=== PATIENT | male | born 1950 | race Caucasian/White ===

== ENCOUNTER → 2016-09-27 | Outpatient (CLI) | payer MEDICARE, OTHER ==
[2016-05-07 07:00] VITALS: BP 122/68
[~2016-09-27] MED LIST: ACET325T9 PO; CEFP200T PO; DOCU-27 PO; FENT1PAT17 TD; FLUD0.1T PO; HYDR2TAB13 PO; HYDR4TAB13 PO; LIPA1CAP11 PO; LIPA1CAP8 PO; METR500T PO; MIDO5TAB PO; MULT1TAB52 PO; ONDA4TAB7 PO; OXYC-323 PO; OXYC15TA22 PO; OXYC5TAB PO; PANCREAZE DR 41 EACH PO; PANT40TA5 PO; TPN
== END | disposition home or self-care (01) ==
LOC: LAB 11:38
PROVIDERS: ATTEND Family Medicine
DX: K86.1 Other chronic pancreatitis (principal)
CPT/HCPCS: 36415; 83690

== ENCOUNTER → 2016-11-09 | Outpatient (CLI) | payer MEDICARE, OTHER ==
[2016-05-07 07:00] VITALS: BP 122/68
[2016-11-09 11:53] LABS: BASO # 0.1 x10^3/uL (0.0-0.2); BASO % 1 % (0-3); EOS % 2 % (0-3); HEMATOCRIT 37.9 % (39.0-53.0); HEMOGLOBIN 12.4 g/dL (13.0-17.5); LYMPH % 26 % (24-48); MEAN CORPUSCULAR HEMOGLOBIN 27 pg (25-35); MEAN CORPUSCULAR HGB CONC 33 g/dL (31-37); MEAN CORPUSCULAR VOLUME 81 fL (79-100); MONO % 9 % (0-9); NEUT % 62 % (31-73); PLATELET COUNT 230 x10^3/uL (140-400); RED BLOOD COUNT 4.68 x10^6/uL (4.30-5.70); RED CELL DISTRIBUTION WIDTH 17.1 % (11.5-14.5); WHITE BLOOD COUNT 7.5 x10^3/uL (4.0-11.0)
[2016-11-09 12:14] LABS: ALBUMIN 3.9 g/dL (3.4-5.0); ALBUMIN/GLOBULIN RATIO 0.9 (1.0-1.7); CALCIUM 9.6 mg/dL (8.5-10.1); CREATININE 1.5 mg/dL (0.7-1.3); POTASSIUM 4.3 mmol/L (3.5-5.1); TOTAL BILIRUBIN 0.4 mg/dL (0.2-1.0); TOTAL PROTEIN 8.3 g/dL (6.4-8.2)
== END | disposition home or self-care (01) ==
LOC: LAB 11:14
PROVIDERS: ATTEND Internal Medicine Hematology & Oncology
DX: C17.0 Malignant neoplasm of duodenum (principal)
CPT/HCPCS: 80053; 85027

== ENCOUNTER → 2017-01-19 | Outpatient (CLI) | payer MEDICARE ==
[2016-05-07 07:00] VITALS: BP 122/68
--- NOTE | 2017-01-19 13:13 | CARD ---
APPROVED REPORT EXAM: Two-dimensional and M-mode echocardiogram with Doppler and color Doppler. Other Information Quality : Average Rhythm : NSR INDICATION Chest Pain Sick sinus syndrome 2D DIMENSIONS RVDd3.8 (2.9-3.5cm)Left Atrium(2D)3.0 (1.6-4.0cm) IVSd0.8 (0.7-1.1cm)Aortic Root(2D)3.0 (2.0-3.7cm) LVDd4.5 (3.9-5.9cm)LVOT Diameter2.0 (1.8-2.4cm) PWd0.8 (0.7-1.1cm)LVDs3.1 (2.5-4.0cm) FS (%) 30.9 %SV55.3 ml LVEF(%)58.6 (>50%) Aortic Valve AoV Peak Charlie.102.7cm/sAoV VTI21.1cm AO Peak GR.4.2mmHgLVOT Peak Charlie.97.3cm/s LVOT VTI 21.28cmAO Mean GR.2mmHg DIMAS (VMAX)2.28lk5YGT (VTI)3.07cm2 Mitral Valve MV E Ywqzgzct07.9cm/sMV DECEL YNHD914ni MV A Tefketui08.0cm/sMV E Mean Gr.1mmHg MV UGX14psN/A Ratio0.8 MV A Uxyxizjv266egCMY (PHT)2.63cm2 TDI E/Lateral E'18.7E/Medial E'9.5 Pulmonary Valve PV Peak Tpqxsbkw91.8cm/sPV Peak Grad.4mmHg RVOT VTI14.8cm Tricuspid Valve TR P. Qlkhylny236zv/sRAP LZJOINWN2xdJp TR Peak Gr.27waVzUFKG00gpZt LEFT VENTRICLE The left ventricle is normal size. There is normal left ventricular wall thickness. Left ventricle sy stolic function is normal. The Ejection Fraction is 55-60%. There is normal LV segmental wall motion. Tissue Doppler imaging reveals mild left ventricular diastolic dysfunction. Transmitral Doppler flow pattern is Grade I-abnormal relaxation pattern. There is no ventricular septal defect visualized. RIGHT VENTRICLE The right ventricle is normal size. The right ventricular systolic function is normal. There is a pac emaker lead seen in the RV/RA. ATRIA The left atrium size is normal. The right atrium size is normal. The interatrial septum is intact wit h no evidence for an atrial septal defect or patent foramen ovale as noted on 2-D or Doppler imaging. AORTIC VALVE The aortic valve is normal in structure and function. The aortic valve is trileaflet. Doppler and Col or Flow revealed no significant aortic regurgitation. There is no significant aortic valvular stenosi s. MITRAL VALVE The mitral valve is normal in structure and function. There is no mitral valve stenosis. Doppler and Color Flow revealed no mitral valve regurgitation noted. TRICUSPID VALVE The tricuspid valve is normal in structure and function. Doppler and Color Flow revealed mild tricusp id regurgitation. The PA pressure was estimated at 30 mmHg. There is no tricuspid valve stenosis. PULMONIC VALVE The pulmonic valve is not well visualized. Doppler and Color Flow revealed no pulmonic valvular regur gitation. There is no pulmonic valvular stenosis. GREAT VESSELS The aortic root is normal in size. The IVC is normal in size and collapses >50% with inspiration. PERICARDIAL EFFUSION There is no evidence of significant pericardial effusion. Critical Notification Critical Value: No <Conclusion> Left ventricle systolic function is normal. The Ejection Fraction is 55-60%. There is normal LV segmental wall motion. Transmitral Doppler flow pattern is Grade I-abnormal relaxation pattern. Doppler and Color Flow revealed mild tricuspid regurgitation. The PA pressure was estimated at 30 mmHg. There is no evidence of significant pericardial effusion.
== END | disposition home or self-care (01) ==
LOC: ECHO 10:51
PROVIDERS: ATTEND Internal Medicine Cardiovascular Disease
DX: I07.1 Rheumatic tricuspid insufficiency (principal)
CPT/HCPCS: 93306

== ENCOUNTER → 2017-05-30 | Outpatient (CLI) | payer MEDICARE ==
[2016-05-07 07:00] VITALS: BP 122/68
[~2017-05-30] MED LIST changes: +DOCU-109 PO; -DOCU-27 PO; -HYDR2TAB13 PO; +HYDR2TAB31 PO; -HYDR4TAB13 PO; +HYDR4TAB45 PO; -OXYC5TAB PO; +OXYC5TAB95 PO
[2017-05-30 13:57] LABS: BASO # 0.1 x10^3/uL (0.0-0.2); BASO % 1 % (0-3); EOS % 1 % (0-3); HEMATOCRIT 36.5 % (39.0-53.0); HEMOGLOBIN 12.1 g/dL (13.0-17.5); LYMPH # 1.5 x10^3/uL (1.0-4.8); LYMPH % 14 % (24-48); MEAN CORPUSCULAR HEMOGLOBIN 28 pg (25-35); MEAN CORPUSCULAR HGB CONC 33 g/dL (31-37); MEAN CORPUSCULAR VOLUME 84 fL (79-100); MONO % 8 % (0-9); NEUT % 76 % (31-73); PLATELET COUNT 252 x10^3/uL (140-400); RED BLOOD COUNT 4.35 x10^6/uL (4.30-5.70); RED CELL DISTRIBUTION WIDTH 13.3 % (11.5-14.5); WHITE BLOOD COUNT 10.7 x10^3/uL (4.0-11.0)
[2017-05-30 14:58] LABS: ALBUMIN 3.4 g/dL (3.4-5.0); ALBUMIN/GLOBULIN RATIO 0.8 (1.0-1.7); CALCIUM 9.1 mg/dL (8.5-10.1); CREATININE 1.5 mg/dL (0.7-1.3); POTASSIUM 4.8 mmol/L (3.5-5.1); TOTAL BILIRUBIN 0.3 mg/dL (0.2-1.0); TOTAL PROTEIN 7.7 g/dL (6.4-8.2)
== END | disposition home or self-care (01) ==
LOC: LAB 13:25
PROVIDERS: ATTEND Internal Medicine Hematology & Oncology
DX: C17.0 Malignant neoplasm of duodenum (principal)
CPT/HCPCS: 36415; 80053; 82378; 85025

== ENCOUNTER → 2017-09-18 | Outpatient (CLI) | payer MEDICARE ==
[~2017-09-18] MED LIST changes: -ACET325T9 PO; -CEFP200T PO; +CONTRAST GIVEN MC; -DOCU-109 PO; -FENT1PAT17 TD; -FLUD0.1T PO; -HYDR2TAB31 PO; -HYDR4TAB45 PO; -LIPA1CAP11 PO; -LIPA1CAP8 PO; -METR500T PO; -MIDO5TAB PO; -MULT1TAB52 PO; -ONDA4TAB7 PO; -OXYC-323 PO; -OXYC15TA22 PO; -OXYC5TAB95 PO; -PANCREAZE DR 41 EACH PO; -PANT40TA5 PO; -TPN
[2017-09-18] MEDS: IOHEXOL 300 MG/ML 100ML VIAL. IV (11:36)
== END | disposition home or self-care (01) ==
LOC: CT 10:32
DX: C17.0 Malignant neoplasm of duodenum (principal); K76.89 Other specified diseases of liver; K86.89 Other specified diseases of pancreas; M41.85 Other forms of scoliosis, thoracolumbar region; F17.200 Nicotine dependence, unspecified, uncomplicated; Z95.0 Presence of cardiac pacemaker; Z90.49 Acquired absence of other specified parts of digestive tract; Z90.411 Acquired partial absence of pancreas
CPT/HCPCS: 74177; Q9967

== ENCOUNTER → 2019-01-11 | Outpatient (CLI) | payer MEDICARE ==
[2017-06-06 11:00] VITALS: BP 94/53
[~2019-01-11] MED LIST changes: +ACET325T9 PO; +CEFP200T PO; -CONTRAST GIVEN MC; +DOCU-109 PO; +FENT1PAT17 TD; +FLUD0.1T PO; +HYDR2TAB31 PO; +HYDR4TAB45 PO; +INSU100V13 SQ; +IOHEXOL 240 MG/ML 50ML VIAL. PO ONE; +LIPA1CAP11 PO; +LIPA1CAP8 PO; +METR500T PO; +MIDO5TAB PO; +MULT1TAB52 PO; +ONDA4TAB7 PO; +OXYC15TA22 PO; +OXYC1TAB15 PO; +OXYC5TAB4 PO; +PANCREAZE DR 41 EACH PO; +PANT40TA5 PO; +TPN
--- NOTE | 2019-01-11 12:57 | RAD ---
CT of the chest, abdomen and pelvis without contrast, 01/11/2019: History: Duodenal cancer follow-up No IV contrast was administered as requested. Oral contrast material was administered for GI tract opacification. A left-sided transvenous pacing device is in place with 2 leads extending into the right heart. The heart is not enlarged. There is moderate calcific plaquing of the thoracic aorta without evidence of any present. Several coronary artery calcifications are noted. No mediastinal adenopathy is evident. There are a few scattered linear parenchymal opacities in the lungs. A tiny 3 mm opacity is seen posterolaterally in the superior segment of the right lower lobe on image 26 of series #2. A tiny 2 mm nodule is present laterally in the left upper lobe on image 25 of series #2. A small density seen laterally in the lingula on image 46 of series #2 demonstrates an elongated configuration in the coronal plane and is probably a scar. No pulmonary mass or dense consolidation is seen. There is no evidence of pleural fluid. Pneumobilia is present. There is a low-density lesion in the superolateral aspect of the right lobe of the liver. Comparison of today's noncontrast scan to the previous postcontrast scan is difficult due to technical differences. This lesion appears to be of similar size. No new hepatic abnormality is identified on today's noncontrast study. 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 A density in the normal region of the second portion of the duodenum probably represents unopacified bowel. A similar appearance was present on 06/03/2017. Residual recurrent tumor in this region cannot be excluded. The remaining portions of the pancreas appear unchanged. The spleen is of normal size. There is bilateral renal cortical scarring. The kidneys show no evidence of obstruction. No adrenal abnormality is seen. An inferior vena cava filter is in place in an infrarenal location. Aortoiliac calcific plaquing is present. No abdominal or pelvic adenopathy is evident. The prostate gland is mildly enlarged. The bowel loops are not distended. No free fluid is evident in the abdomen or pelvis. There is a moderate thoracolumbar scoliosis with moderate scattered degenerative changes. IMPRESSION: 1. Stable CT abdomen and pelvis findings. 2. Mild parenchymal scarring in the lungs. 3. Several tiny subcentimeter pulmonary nodules are noted as described above, and are nonspecific. CT follow-up is suggested, if clinically indicated. PQRS Compliance Statement: One or more of the following individualized dose reduction techniques were utilized for this examination: 1. Automated exposure control 2. Adjustment of the mA and/or kV according to patient size 3. Use of iterative reconstruction technique
== END | disposition home or self-care (01) ==
LOC: CT 09:10
PROVIDERS: ATTEND Internal Medicine Hematology & Oncology
DX: C17.0 Malignant neoplasm of duodenum (principal); J98.4 Other disorders of lung; R91.8 Other nonspecific abnormal finding of lung field; I25.10 Atherosclerotic heart disease of native coronary artery without angina pectoris; N28.89 Other specified disorders of kidney and ureter; M41.85 Other forms of scoliosis, thoracolumbar region
CPT/HCPCS: 71250; 74176; Q9966

== ENCOUNTER → 2019-01-24 | Outpatient (CLI) | payer MEDICARE ==
[2017-06-06 11:00] VITALS: BP 94/53
[~2019-01-24] MED LIST changes: -IOHEXOL 240 MG/ML 50ML VIAL. PO ONE
--- NOTE | 2019-01-24 11:44 | CARD ---
MR#: [id number] Date of Study: 01/24/2019 Ordering Physician: SYLVIA PAGE, Referring Physician: SYLVIA PAGE Tech: Patience Peralta RDCS APPROVED REPORT EXAM: Two-dimensional and M-mode echocardiogram with Doppler and color Doppler. Other Information Quality : Excellent INDICATION Sick Sinus Syndrome Surgery/Intervention Pacemaker: Date: 2012 2D DIMENSIONS RVDd3.0 (2.9-3.5cm)Left Atrium(2D)3.6 (1.6-4.0cm) IVSd1.0 (0.7-1.1cm)Aortic Root(2D)2.9 (2.0-3.7cm) LVDd4.4 (3.9-5.9cm)LVOT Diameter2.2 (1.8-2.4cm) PWd1.0 (0.7-1.1cm)LVDs3.0 (2.5-4.0cm) FS (%) 27.0 %SV20.6 ml LVEF(%)55.0 (>50%) Aortic Valve AoV Peak Charlie.137.8cm/sAoV VTI27.2cm AO Peak GR.7.6mmHgLVOT Peak Charlie.115.1cm/s AO Mean GR.4mmHgAVA (VMAX)3.14cm2 DIMAS (VTI)3.40cm2 Mitral Valve MV E Iayjaxzk89.0cm/sMV DECEL YWKM906gf MV A Cmmwxyja67.7cm/sE/A Ratio0.8 Tricuspid Valve TR P. Llezxmld816wa/sRAP NHPWTKAU8hrPw TR Peak Gr.96weYzQYYP15unZh Pulmonary Vein S1 Crclittn62.5cm/sD2 Gnpxykia25.9cm/s LEFT VENTRICLE The left ventricle is normal size. There is normal left ventricular wall thickness. Left ventricle sy stolic function is normal The Ejection Fraction is 55-60%. Apical motion consistent with pacemaker ac tivation. Transmitral Doppler flow pattern is Grade I-abnormal relaxation pattern. RIGHT VENTRICLE The right ventricle is normal size. The right ventricular systolic function is normal. There is a pac emaker lead in the right ventricle. ATRIA The left atrium size is normal. The right atrium size is normal. A pacemaker is seen in the right atr ium consistent with history. The interatrial septum is intact with no evidence for an atrial septal d efect or patent foramen ovale as noted on 2-D or Doppler imaging. AORTIC VALVE The aortic valve is calcified but opens well. Doppler and Color Flow revealed no significant aortic r egurgitation. There is no significant aortic valvular stenosis. MITRAL VALVE The mitral valve is calcified but opens well. A borderline mitral valve prolapse is present. There is no mitral valve stenosis. Doppler and Color Flow revealed no mitral valve regurgitation noted. TRICUSPID VALVE The tricuspid valve is normal in structure and function. Doppler and Color Flow revealed trace tricus pid regurgitation. The PA pressure was estimated at 30 mmHg. There is no tricuspid valve stenosis. PULMONIC VALVE The pulmonary valve is normal in structure and function. Doppler and Color Flow revealed trace pulmon ic valvular regurgitation. There is no pulmonic valvular stenosis. GREAT VESSELS The aortic root is normal in size. The ascending aorta is normal in size. The IVC is normal in size a nd collapses >50% with inspiration. PERICARDIAL EFFUSION There is no evidence of significant pericardial effusion. Critical Notification Critical Value: No <Conclusion> Left ventricle systolic function is normal The Ejection Fraction is 55-60%. Transmitral Doppler flow pattern is Grade I-abnormal relaxation pattern. There is a pacemaker lead in the right atrium and right ventricle. Trace tricuspid regurgitation. The PA pressure was estimated at 30 mmHg. There is no evidence of significant pericardial effusion. Signed by : Sylvia Page, Electronically Approved : 01/24/2019 11:43:52
== END | disposition home or self-care (01) ==
LOC: ECHO 10:53
PROVIDERS: ATTEND Internal Medicine Cardiovascular Disease
DX: I08.0 Rheumatic disorders of both mitral and aortic valves (principal); I49.5 Sick sinus syndrome; Z95.0 Presence of cardiac pacemaker
CPT/HCPCS: 93306

== ENCOUNTER → 2019-08-13 | Outpatient (CLI) | payer MEDICARE ==
[2019-08-10 18:47] VITALS: BP 158/95
[~2019-08-13] MED LIST changes: +CONTRAST GIVEN. MC PRN; +IOHEXOL 240 MG/ML 50ML VIAL. PO ONE; -MIDO5TAB PO; +MIDO5TAB4 PO; -PANT40TA5 PO; +PANT40TA77 PO
--- NOTE | 2019-08-13 15:40 | RAD ---
PQRS Compliance statement: One or more of the following individualized dose reduction techniques were utilized for this examination: 1. Automated exposure control. 2. Adjustment of the mA and/or kV according to patient size. 3. Use of iterative reconstruction technique. Indication: Right lower quadrant pain. TECHNIQUE: CT abdomen and pelvis without IV contrast with multiplanar reformats. COMPARISON: 01/11/2019 FINDINGS: Limited evaluation of solid abdominal and pelvic organs due to lack of IV contrast. Heart is normal in size. No pericardial or pleural effusion. Clear lung bases. Stable low attenuating lesion in the right hepatic dome measuring 2.4 x 2.5 cm (series 2 image 13) also seen on previous CT from 2013. Stable pneumobilia. Spleen is unenlarged. Status post cholecystectomy. Noncontrast appearance of the pancreas is within normal limits. Suggestion of hepaticoduodenostomy. Infrarenal IVC filter noted. No nephrolithiasis or hydronephrosis. No enlarged retroperitoneal or pelvic adenopathy. Moderate atherosclerotic plaque in the abdominal aorta and bilateral iliac arteries. No free pelvic fluid or ascites. The prostate and seminal vesicles show no large mass. No bowel obstruction. Urinary bladder demonstrates no radiopaque stone. No pneumoperitoneum. Significant levoscoliosis of the thoracolumbar junction. No suspicious bony lesion. Normal appendix. IMPRESSION: Limited evaluation of solid abdominal and pelvic organs due to lack of IV contrast. No acute process identified in the right lower quadrant. No nephrolithiasis. Stable right hepatic dome lesion dating back to 2012 and most likely benign given interval stability such as hemangioma or complex cyst. Electronically signed by: Jim Angelo DO (08/13/2019 3:37 PM) [facility]
== END | disposition home or self-care (01) ==
LOC: CT 10:12
PROVIDERS: ATTEND Family Medicine
DX: K76.89 Other specified diseases of liver (principal); Z90.49 Acquired absence of other specified parts of digestive tract; I70.0 Atherosclerosis of aorta
CPT/HCPCS: 74176; Q9966

== ENCOUNTER → 2020-01-23 | Outpatient (CLI) | payer MEDICARE ==
[2019-08-10 18:47] VITALS: BP 158/95
[~2020-01-23] MED LIST changes: -CONTRAST GIVEN. MC PRN; -IOHEXOL 240 MG/ML 50ML VIAL. PO ONE
--- NOTE | 2020-01-23 12:54 | CARD ---
MR#: [id number] Date of Study: 01/23/2020 Ordering Physician: SYLVIA POWERS, Referring Physician: SYLVIA POWERS, Tech: Oliva Field APPROVED REPORT EXAM: Two-dimensional and M-mode echocardiogram with Doppler and color Doppler. Other Information Quality : AverageHR: 65bpm INDICATION Arrhythmia Sick Sinus Syndrome 2D DIMENSIONS RVDd0.9 (2.9-3.5cm)Left Atrium(2D)3.5 (1.6-4.0cm) IVSd5.2 (0.7-1.1cm)Aortic Root(2D)2.9 (2.0-3.7cm) LVDd0.9 (3.9-5.9cm)LVOT Diameter2.0 (1.8-2.4cm) LVDs2.8 (2.5-4.0cm)FS (%) 214.1 % SV27.1 mlLVEF(%)1868.7 (>50%) Aortic Valve AoV Peak Charlie.130.1cm/sAoV VTI27.0cm AO Peak GR.6.8mmHgLVOT Peak Charlie.110.6cm/s LVOT VTI 22.45cmAO Mean GR.4mmHg DIMAS (VMAX)2.07an0CKU (VTI)2.71cm2 Mitral Valve MV E Dwngkqvr81.8cm/sMV DECEL VYSY239oq MV A Tfxtotpc48.3cm/sMV AGI89ol E/A Ratio0.8MVA (PHT)2.73cm2 TDI E/Lateral E'4.7E/Medial E'7.4 Pulmonary Valve PV Peak Mrpwluhp556.2cm/sPV Peak Grad.5mmHg Tricuspid Valve TR P. Duyqlugi769dj/sRAP FZTHTNIT7uqTa TR Peak Gr.98ihXiMODB52xfRe Pulmonary Vein S1 Hzovbbvi35.1cm/sD2 Ocfkzzji71.1cm/s LEFT VENTRICLE The left ventricle is normal size. There is normal left ventricular wall thickness. The left ventricu lar systolic function is normal. The Ejection Fraction is 55-60%. There is normal LV segmental wall m otion. Transmitral Doppler flow pattern is Grade I-abnormal relaxation pattern. RIGHT VENTRICLE The right ventricle is normal size. There is normal right ventricular wall thickness. The right ventr icular systolic function is normal. ATRIA The left atrium size is normal. The right atrium size is normal. The interatrial septum is intact wit h no evidence for an atrial septal defect or patent foramen ovale as noted on 2-D or Doppler imaging. AORTIC VALVE The aortic valve is normal in structure and function. Doppler and Color Flow revealed trace aortic re gurgitation. There is no significant aortic valvular stenosis. MITRAL VALVE The mitral valve is normal in structure and function. There is no evidence of mitral valve prolapse. There is no mitral valve stenosis. Doppler and Color-flow revealed trace mitral regurgitation. TRICUSPID VALVE The tricuspid valve is normal in structure and function. Doppler and Color Flow revealed trace tricus pid regurgitation with an estimated PAP of 28 mmHg. There is no tricuspid valve stenosis. PULMONIC VALVE The pulmonic valve is not well visualized. Doppler and Color Flow revealed no pulmonic valvular regur gitation. GREAT VESSELS The aortic root is normal in size. The IVC is normal in size and collapses >50% with inspiration. PERICARDIAL EFFUSION There is no evidence of significant pericardial effusion. Critical Notification Critical Value: No <Conclusion> The left ventricular systolic function is normal. The Ejection Fraction is 55-60%. There is normal LV segmental wall motion. Transmitral Doppler flow pattern is Grade I-abnormal relaxation pattern. Trace mitral regurgitation. Trace tricuspid regurgitation with an estimated PAP of 28 mmHg. There is no evidence of significant pericardial effusion. Signed by : Sylvia Powers, Electronically Approved : 01/23/2020 12:53:49
== END | disposition home or self-care (01) ==
LOC: ECHO 10:58
PROVIDERS: ATTEND Internal Medicine Cardiovascular Disease
DX: I49.5 Sick sinus syndrome (principal)
CPT/HCPCS: 93306

== ENCOUNTER → 2020-07-14 | Outpatient (CLI) | payer MEDICARE ==
[2019-08-10 18:47] VITALS: BP 158/95
[~2020-07-14] MED LIST changes: +MULT-445 PO; -MULT1TAB52 PO; +REGADENOSON 0.4 MG/5 ML DISP.SYRIN. IV ONE
--- NOTE | 2020-07-14 17:27 | RAD ---
MR#: [id number] Date of Study: 07/14/2020 Ordering Physician: SYLVIA PAGE Referring Physician: REZA SCHWARTZ Tech: RT Angela Horton) (N) APPROVED REPORT Test Type: Pharmacological Stress Nurse/Tech: Christianne Sandra RN Test Indications: Sick sinus syndrome Cardiac History: Diabetes,pacemaker Medications: See Electronic Medical Record Medical History: See Electronic Medical Record Resting ECG: Paced Rhythm Resting Heart Rate: 81 bpm Resting Blood Pressure: 121/54mmHg Pretest Chest Pain: No chest pain Nurse/Tech Notes S1,S2 and lungs clear to auscultation. Consent: The procedure was explained to the patient in lay terms. Informed consent was witnessed. Eulalio eout was entered into [employer]. History and Stress Test performed by RT Angela Horton) (N) Pharm. Details Pharmacologic stress testing was performed using 0.4mg per 5ml of regadenoson given intravenously ove r 7-10 seconds. Stress Symptoms No chest pain or symptoms. POST EXERCISE Reason for Termination: Infusion complete Target HR: No Max HR: 110 bpm 85% of Maximum Predicted HR: 129 bpm Max Blood Pressure: 119/66mmHg Blood Pressure response to exercise: Normal blood pressure response during stress. Heart Rate response to exercise: WNL Chest Pain: No. Arrhythmia: No. ST Change: No. INTERPRETATION Stress EKG Conclusion: The resting EKG shows a atrial paced rhythm. The stress EKG shows no significant changes from baseline. No EKG evidence of stress-induced ischemia. Imaging Protocol IMAGE PROTOCOL: Rest Tc-99m/stress Tc-99m 1 day Rest: Stress: Viability: Radiopharm.Tc99m JiuadoxvcCb95u Sestamibi Dose10.7mCi 32.6mCi Duration 13min. 13min. Img Date 07/14/2020 07/14/2020 Inj-Img Vxsf36sht. 60min. Rest Admin Site:IV - Left AntecubitalAdministrator:RT Sol (Gin)(N) Stress Admin Site: IV - Left AntecubitalAdministrator: Elma Meza, RT (R)(N) STRESS DATA End Diast. Vol.69.0mlLVEDV index BSA34.0ml End Syst. Vol.32.0mlLVESV index BSA16.0ml Myocardial Fugx889.0gEject. Jecljxac14.0% Stress Scores Regional WT0.00Summed WT2.00 Regional WM0.00Summed WM16.00 LV Perfusion The stress scans showed no significant defects. The rest scans showed no significant defects. Nuclear imaging shows no reversible ischemia or infarct. Wall Motion Left ventricular systolic function is low normal with an ejection fraction of 52%. LV Perf. Quant 17 Seg. SSS0.00 17 Seg. SRS3.00 17 Seg. SDS0.00 Stress Defect Extent (% LAD)0.00Rest Defect Extent (% LAD)0.00Rev. Defect Extent (% LAD)0.00 Stress Defect Extent (% LCX) 0.00Rest Defect Extent (% LCX)25.00Rev. Defect Extent (% LCX)0.00 Stress Defect Extent (% RCA)0.00Rest Defect Extent (% RCA)0.00Rev. Defect Extent (% RCA)0.00 Stress Defect Extent (% DEMI)0.00Rest Defect Extent (% DEMI)4.80Rev. Defect Extent (% DEMI)0.00 Conclusion 1. No EKG evidence of stress-induced ischemia. 2. Nuclear imaging shows no reversible ischemia or infarct. 3. LV systolic function is low normal with an ejection fraction of 52% in a patient with a pacemaker. 4. Moderately low risk Lexiscan nuclear stress test. Signed by : Jose Berry MD Electronically Approved : 07/14/2020 17:26:50
== END ==
LOC: NM 08:37
PROVIDERS: ATTEND Internal Medicine Cardiovascular Disease
DX: I49.5 Sick sinus syndrome (principal); Z95.0 Presence of cardiac pacemaker
CPT/HCPCS: 78452; 93017; A9500; J2785

== ENCOUNTER → 2021-07-15 | Outpatient (CLI) | payer MEDICARE ==
[2019-08-10 18:47] VITALS: BP 158/95
[~2021-07-15] MED LIST changes: -REGADENOSON 0.4 MG/5 ML DISP.SYRIN. IV ONE
--- NOTE | 2021-07-15 12:23 | CARD ---
MR#: [id number] Date of Study: 07/15/2021 Ordering Physician: SYLVIA POWERS, Referring Physician: SYLVIA POWERS, Tech: Oliva Field [facility] APPROVED REPORT EXAM: Two-dimensional and M-mode echocardiogram with Doppler and color Doppler. Other Information Quality : AverageHR: 56bpm INDICATION Arrhythmia Sick Sinus Syndrome Surgery/Intervention Pacemaker: Date: 2012 RISK FACTORS Diabetes 2D DIMENSIONS RVDd3.1 (2.9-3.5cm)Left Atrium(2D)3.6 (1.6-4.0cm) IVSd0.9 (0.7-1.1cm)Aortic Root(2D)2.7 (2.0-3.7cm) LVDd5.2 (3.9-5.9cm)LVOT Diameter2.0 (1.8-2.4cm) PWd0.9 (0.7-1.1cm)LVDs2.8 (2.5-4.0cm) FS (%) 46.7 %SV99.8 ml LVEF(%)77.8 (>50%) Aortic Valve AoV Peak Charlie.136.4cm/sAoV VTI30.4cm AO Peak GR.7.4mmHgLVOT Peak Charlie.108.7cm/s LVOT VTI 25.85cmAO Mean GR.4mmHg DIMAS (VMAX)1.23pm1HRC (VTI)2.65cm2 AI P 1/2 Goaw524zo Mitral Valve MV E Nusqtjhf88.0cm/sMV DECEL XRSP901tr MV A Czjmrdhc14.4cm/sMV E Mean Gr.1mmHg MV KOO37iqP/A Ratio1.0 MVA (PHT)3.28cm2 TDI E/Lateral E'5.4E/Medial E'7.8 Pulmonary Valve PV Peak Vclcyvrx36.1cm/sPV Peak Grad.4mmHg Tricuspid Valve TR P. Uiiabwhm509ul/sRAP OYHNRFGP0rpAh TR Peak Gr.64tjRbTTTI49rqAe Pulmonary Vein S1 Klafyuat35.1cm/sD2 Skbprcou68.1cm/s PVa lknhwjfx692seym LEFT VENTRICLE The left ventricle is normal size. There is normal left ventricular wall thickness. The left ventricu lar systolic function is normal. The Ejection Fraction is 55%. There is normal LV segmental wall major on. Transmitral Doppler flow pattern is Grade I-abnormal relaxation pattern. RIGHT VENTRICLE The right ventricle is normal size. There is normal right ventricular wall thickness. The right ventr icular systolic function is normal. There is a pacemaker lead in the right ventricle. ATRIA The left atrium size is normal. The right atrium size is normal. The interatrial septum is intact wit h no evidence for an atrial septal defect or patent foramen ovale as noted on 2-D or Doppler imaging. AORTIC VALVE The aortic valve is normal in structure and function. Doppler and Color Flow revealed trace to mild a ortic regurgitation. There is no significant aortic valvular stenosis. Calculated aortic valve area i s 2.60 cm2 with maximum pressure gradient of 9 mmHg and mean pressure gradient of 5 mmHg. MITRAL VALVE The mitral valve is normal in structure and function. There is no evidence of mitral valve prolapse. There is no mitral valve stenosis. Doppler and Color-flow revealed trace mitral regurgitation. TRICUSPID VALVE The tricuspid valve is normal in structure and function. Doppler and Color Flow revealed trace tricus pid regurgitation with an estimated PAP of 32 mmHg. There is no tricuspid valve stenosis. PULMONIC VALVE The pulmonic valve is not well visualized. Doppler and Color Flow revealed trace pulmonic valvular re gurgitation. GREAT VESSELS The aortic root is normal in size. The ascending aorta is normal in size. The IVC is normal in size a nd collapses >50% with inspiration. PERICARDIAL EFFUSION There is no evidence of significant pericardial effusion. Critical Notification Critical Value: No <Conclusion> The left ventricular systolic function is normal. The Ejection Fraction is 55%. There is normal LV segmental wall motion. Pacer lead noted RA/RV. Trace mitral regurgitation. Trace tricuspid regurgitation with an estimated PAP of 32 mmHg. There is no evidence of significant pericardial effusion. Signed by : Sylvia Powers, Electronically Approved : 07/15/2021 12:23:11
== END ==
LOC: ECHO 09:44
PROVIDERS: ATTEND Internal Medicine Cardiovascular Disease
DX: I35.1 Nonrheumatic aortic (valve) insufficiency (principal); I49.5 Sick sinus syndrome
CPT/HCPCS: 93306